=== PATIENT | female | born 1995 | race Caucasian/White ===

== ENCOUNTER 2019-11-16 17:27 | Emergency (ER) | payer OTHER ==
[~2019-11-16] VITALS: Ht 172.7 cm; Wt 82.3 kg
[2019-11-16 17:37] VITALS: Ht 172.7 cm; Wt 82.3 kg
[2019-11-16 18:52] VITALS: BP 128/84
== END 2019-11-16 18:52 | disposition home or self-care (01) ==
LOC: ED 17:27
DX: M79.641 Pain in right hand (principal); R20.2 Paresthesia of skin; Z90.89 Acquired absence of other organs